=== PATIENT | male | born 1965 | race Caucasian/White ===

== ENCOUNTER 2022-10-01 07:00 | Outpatient (CLI) | payer OTHER, SELFPAY ==
--- NOTE | 2022-10-01 07:15 | MR_ITS ---
[facility] [address] [facility] [address] Phone:?[phone] Fax:?[phone] Referring Physician Information: Jose Angel Rice M.D. [address] [facility] [address] Phone:?[phone] Fax:?[phone] Patient:Rufus Houston D.O.B:?1965 Sex:?Male Phone:?[phone] [facility] MRN:?[id number] Exam Date:?10/01/2022 EXAM: MRI of the RIGHT SHOULDER, without contrast CLINICAL: Male, 56 years old, with right shoulder pain. Reported history of injury and surgery in 2004. INDICATION: Evaluate for rotator cuff tear versus other derangement etiology. PRIOR SURGERY: Reported unspecified surgery in 2004. PLAIN FILMS: None available. COMPARISONS: No prior MRIs available. TECHNICAL: Using a 1.5T MR scanner and a localizing shoulder surface coil: 3.0 mm?coronal obliques: PD, T2, STIR 3.0 mm?sagittal obliques: PD, T2 3.0 mm?axials: PD, T2 SEDATION: None. CONTRAST: None. IMPRESSION: 1. Status post rotator cuff tear repair surgery but with massive full-thickness full-width and relatively chronic-appearing recurrent supraspinatus and infraspinatus tendon tears with marked retraction and moderate to marked muscle atrophy, the MR appearance of which appearing potentially irreparable. 2. High-grade deep surface partial-thickness tear of the subscapularis tendon without convincing defined full-thickness tear although interrupting most of its lesser tuberosity insertion. 3. Associated late stage biceps anna lesion with medial dislocation of biceps tendon. 4. Mild rotator cuff arthropathy osteoarthritis. FINDINGS: Glenohumeral joint: Effusion/cyst: Minimal glenohumeral joint effusion. No paralabral ganglion cyst. Articular cartilage: Humeral head: Smooth-margined chondral thinning of the superior humeral head. Glenoid: Smooth-margined chondral thinning of the superior glenoid. Loose bodies: No demonstrable loose bodies. Inferior glenohumeral ligament/axillary recess: The axillary recess is normal in thickness and signal. No evidence of adhesive capsulitis or capsuloligamentous injury. Labrum: Irregularity and some attenuation of the superior greater than anterior labrum. [The posterior labrum is intact. Bones: Proximal humerus: Focal metallic artifact reflects metallic suture anchor in the greater tuberosity in keeping with residua of rotator cuff tear repair surgery. Associated adjacent chronic hyperostosis of the greater tuberosity and humeral sulcus. Slight to mild inferomedial marginal osteophyte formation of the humeral head reflects the mild glenohumeral osteoarthritis. The proximal humerus is otherwise intact. No fracture or marrow edema/pathology. No humeral Hill-Sachs or reverse Hill-Sachs lesion/impaction or contusion. Glenoid: No fracture or marrow edema/pathology. No osseous Bankart lesion. Coracoacromial arch: Acromion morphology: Residua of anterior acromioplasty for decompression appears adequate. No mesoacromion or preacromion. Acromiohumeral space: Marked narrowing of acromiohumeral distance at a minimum of 2.5 mm predominantly secondary to proximal migration of the humeral head associated with the recurrent rotator cuff attenuation/tear detailed below. Coracohumeral space: Widely patent. Acromioclavicular joint: Joint: Mild to moderate chronic degenerative change of the acromioclavicular joint with inferior hypertrophy of the distal clavicular facet, without raven encroachment upon the underlying supraspinatus. Ligaments: Coracoclavicular ligaments are intact. Bursae: Subacromial-subdeltoid: Fluid in the subacromial space reflects accumulation associated with the full-thickness rotator cuff tear discussed below. Subcoracoid: No convincing subcoracoid bursal thickening/bursitis. Rotator cuff and muscles/tendons: Supraspinatus-infraspinatus: Residua of rotator cuff tear repair surgery but with massive full-thickness full-width recurrent tears of both supraspinatus and infraspinatus tendons, accompanied by marked to approximately 4 cm of proximal tendon retraction and moderate towards marked muscle atrophy of infraspinatus greater than supraspinatus (coronal images 21-9). Teres minor: No tendinopathy, tear or atrophy. , There appears compensatory hypertrophy of the teres minor muscle. Subscapularis: Chronic 80-90% thickness deep surface tear/attenuation of the subscapularis tendon. A very thin superficial tendon layer appearing to remain intact through the transverse humeral ligament to the greater tuberosity, interrupting most of its lesser tuberosity attachment (axial images 15-19). Associated mild decreased bulk and pronounced Goutallier stage 2 fatty infiltration. Deltoid: No strain or atrophy. Biceps tendon, long head: Medial dislocation of the long head of biceps tendon from the bicipital sulcus. Axilla: No axillary masses or abnormally enlarged lymphadenopathy. [facility] Electronically signed on 10/02/2022 5:20:00 PM by Clint Solorio M.D.
== END 2022-10-01 07:01 | disposition home or self-care (01) ==
LOC: MRI 07:01
PROVIDERS: PCP Family Medicine; Visit Provider Family Medicine
DX: M25.311 Other instability, right shoulder (principal); M75.101 Unspecified rotator cuff tear or rupture of right shoulder, not specified as traumatic; M19.011 Primary osteoarthritis, right shoulder
CPT/HCPCS: 73221

== ENCOUNTER 2023-12-04 08:13 | Outpatient (CLI) | payer OTHER, SELFPAY | END 2023-12-04 08:14 | disposition home or self-care (01) | PROVIDERS: PCP Family Medicine; Visit Provider Family Medicine | DX: K76.0 Fatty (change of) liver, not elsewhere classified (principal); E78.00 Pure hypercholesterolemia, unspecified; Z12.5 Encounter for screening for malignant neoplasm of prostate | CPT/HCPCS: 80053; 80061; G0103 ==

== ENCOUNTER 2023-12-17 12:39 | Outpatient (CLI) | payer OTHER, SELFPAY ==
[2023-12-17 13:33] VITALS: BP 132/72; PULSE 95; RESP 18
--- NOTE | 2023-12-17 13:44 | W.PM.STED ---
Stress Test Note Date Date of test: 12/17/23 Providers Primary care provider: Sarkis Rice Stress test physician: Brannon Bal Stress Test Note Stress test ordered: Stress Echo Indication for test: Shortness of breath/chest pain Results discussion: This very nice gentleman presents for the above test after discussion of the cardiac stress test medical history, and giving him informed consent, of the risks benefits and side effects of non diagnosis he would like to proceed. Pretest EKG shows normal sinus rhythm with a ventricular rate of 69 blood pressure 130/74. No acute ST wave changes are noted. Standard Jona protocol is employed over 9 minute. He achieved a metabolic equivalent of 10.5 Mets with a maximum rate of 168 which is 122 %. Review of the tracing does show some mild ST wave depression of 2 mm in leads 2 3 and AVF. On also laterally in leads V4 through V6. He did not have any chest pain, he did have some mild shortness of breath. Conditioning was felt to be good Impression: Positive stress test with 2-3 mm of depression in inferior lateral leads. This may be a false positive given the above. Follow up suggested: Await cardiology review of the echo portion, clinical correlation with this will be needed, patient left this testing facility in excellent condition.
== END 2023-12-17 12:40 | disposition home or self-care (01) ==
LOC: STRESS 12:39
PROVIDERS: PCP Family Medicine; Visit Provider Family Medicine
DX: R06.09 Other forms of dyspnea (principal); R07.89 Other chest pain
CPT/HCPCS: 93016; 93325; 93351

== ENCOUNTER 2024-07-16 06:20 | Outpatient (CLI) | payer OTHER, SELFPAY ==
--- NOTE | 2024-07-16 07:50 | P.ANES_ITS ---
Anesthesia Charges Start Date/Time Anesthesia Start Date: 07/16/24 Anesthesia Start Time: 07:10 Stop Date/Time Anesthesia Stop Date: 07/16/24 Anesthesia Stop Time: 07:44 Coding CPT Codes CPT Codes: SULAIMAN LWR INTST NDSC NOS - 33779 ([id number]) P2 - PATIENT W/MILD SYST DISEASE, QK - PHERESIS NURSE 2-4 CNCRNT ANES PROC, QX - BISTRO ATTENDANT SVC W/ MD MED DIRECTION
--- NOTE | 2024-07-16 07:50 | W.ANESCHARGE ---
Anesthesia Charges Start Date/Time Anesthesia Start Date: 07/16/24 Anesthesia Start Time: 07:10 Stop Date/Time Anesthesia Stop Date: 07/16/24 Anesthesia Stop Time: 07:44 Coding CPT Codes CPT Codes: SULAIMAN LWR INTST NDSC NOS - 97906 ([id number]) P2 - PATIENT W/MILD SYST DISEASE, QK - BIG DATA LEAD 2-4 CNCRNT ANES PROC, QX - MANAGED SECURITY SALES CONSULTANT SVC W/ MD MED DIRECTION
--- NOTE | 2024-07-16 09:33 | P.ANES_ITS ---
Anesthesia Charges Start Date/Time Anesthesia Start Date: 07/16/24 Anesthesia Start Time: 07:10 Stop Date/Time Anesthesia Stop Date: 07/16/24 Anesthesia Stop Time: 07:44 Coding CPT Codes CPT Codes: SULAIMAN LWR INTST NDSC NOS - 68520 ([id number]) P2 - PATIENT W/MILD SYST DISEASE, QK - PERSONNEL COORDINATOR 2-4 CNCRNT ANES PROC, QX - FISHING TOOL OPERATOR SVC W/ MD MED DIRECTION
--- NOTE | 2024-07-16 09:33 | W.ANESCHARGE ---
Anesthesia Charges Start Date/Time Anesthesia Start Date: 07/16/24 Anesthesia Start Time: 07:10 Stop Date/Time Anesthesia Stop Date: 07/16/24 Anesthesia Stop Time: 07:44 Coding CPT Codes CPT Codes: SULAIMAN LWR INTST NDSC NOS - 93530 ([id number]) P2 - PATIENT W/MILD SYST DISEASE, QK - DATA ENTRY CLERK 2-4 CNCRNT ANES PROC, QX - BEAD WIRE TAPER SVC W/ MD MED DIRECTION
== END 2024-07-16 06:21 | disposition home or self-care (01) ==
LOC: OP CLINIC 06:21
PROVIDERS: PCP Family Medicine; Visit Provider Surgery
DX: Z12.11 Encounter for screening for malignant neoplasm of colon (principal); D12.0 Benign neoplasm of cecum; D12.2 Benign neoplasm of ascending colon; K57.30 Diverticulosis of large intestine without perforation or abscess without bleeding
CPT/HCPCS: 00811; 00812; 45385; J2405; J2704

== ENCOUNTER 2025-01-18 08:22 | Outpatient (CLI) | payer OTHER, SELFPAY | END 2025-01-18 08:23 | disposition home or self-care (01) | PROVIDERS: PCP Family Medicine; Visit Provider Family Medicine | DX: E78.00 Pure hypercholesterolemia, unspecified (principal); K76.0 Fatty (change of) liver, not elsewhere classified; Z12.5 Encounter for screening for malignant neoplasm of prostate | CPT/HCPCS: 80053; 80061; G0103 ==